=== PATIENT | female | born 1980 | race Caucasian/White ===

== ENCOUNTER 2017-12-19 09:20 | Day surgery (SDC) | payer OTHER ==
--- NOTE | 2017-12-18 11:47 | GHP ---
DATE OF PLANNED PROCEDURE: 12/19/2017. PLANNED PROCEDURE: Hysteroscopy, morcellation of endometrial polyp. PREOPERATIVE DIAGNOSIS: Endometrial polyp. HISTORY OF PRESENT ILLNESS: Patient is a 37-year-old, 2, para 2-0-0-2, who has had infertili ty for the last 3 years. She has been working with [employer] and had a polyp detected by sonohyste martin. Patient states her periods are slightly heavier. They are still regular. Her had a semen analysis which was initially abnormal, but was repeated and was normal. Patient has requested to proceed with a hysteroscopic polypectomy to help with her periods and help improve [facility] [place] Risks and benefits have been extensively reviewed with the patient and the patient has been pro perly consented. She will sign a consent morning of surgery. MEDICAL HISTORY: Infertility, hypothyroidism, history of hemorrhoids. MEDICATIONS: vitamins and Synthroid 50 mcg. SURGICAL HISTORY: section x2, breast cyst aspiration and biopsy, wisdom teeth extraction. ALLERGIES: No known drug allergies. SOCIAL HISTORY: Patient is . She denies tobacco or drug use. She does drink alcohol sociall y. FAMILY MEDICAL HISTORY: Significant for mom with endometrial cancer and maternal grandmother with br east cancer with which she at 51. The patient's mom is BRCA indeterminate. Other family medica l history is the patient's brother secondary to a PE with no obvious causes. They did not do a thrombophilia panel on autopsy. The patient had a negative thrombophilia panel done herself. [employer]PER[employer] HISTORY: Menarche age 13. Periods every 26-28 days, lasting 4-6 days. She is a 2, p kae 2-0-0-2. She has had 2 sections. First section was in 08/2011, for a placenta l abruption at 35 and 5/7 weeks' gestation and severe variable decelerations, and in 2013, she had a repeat low transverse section after non-reassuring status with attempting a vaginal bi rth after section. The patient denies any history of any abnormal Pap smears or sexually tr ansmitted diseases. REVIEW OF SYSTEMS: A 10-point review of systems is negative. PHYSICAL EXAMINATION: VITAL SIGNS: The patient's vital signs are stable. GENERAL APPEARANCE: Aler t and oriented x3. PSYCH: Appropriate affect. MUSCULOSKELETAL: Grossly intact. NEURO: Grossly i ntact. HEART: Rate is regular. LUNGS: Clear to auscultation bilaterally. ABDOMEN: Soft, nondist ended, nontender. EXTREMITIES: Reveal no calf tenderness or edema. PELVIC: A mobile, small, mid p osition uterus with no adnexal masses. Pelvic ultrasound showed a polyp. ASSESSMENT AND PLAN: A 37-year-old, 2, para 2-0-0-2, with 3-year history of infertility, wit h a known uterine polyp which is also causing heavier periods. She will undergo a hysteroscopy with morcellation of endometrial tissue and endometrial polyp. Risks and benefits have been extensively r eviewed with the patient and the patient has been properly consented. /[id number]/MODL
[2017-12-19] MEDS ORDERED: LR 1,000 ML IV ONE (10:07)
--- NOTE | 2017-12-19 10:54 | PDHPUP ---
History & Physical Update H&P update statement: This history and physical update is based on an assessment of the patient which was completed after admission or registration (within 24 hours), but prior to the surgery/procedure. H&P update: H&P reviewed & patient examined, no change in patient's condition since H&P completed
[2017-12-19] MEDS ORDERED: SILVER NITRATE APPLICATOR 1 APPL TP ONE ×2 (11:02→11:48)
[2017-12-19] MEDS ORDERED: fentaNYL 100 MCG/2 ML INJ ONE (11:14)
[2017-12-19] MEDS ORDERED: MIDAZOLAM 2 MG/2 ML VIAL ONE (11:14)
[2017-12-19] MEDS ORDERED: PROPOFOL/EMULSION 500 MG/50 ML BOTTLE IV ONE (11:14)
[2017-12-19] MEDS ORDERED: KETOROLAC 30 MG/1 ML SDV ONE (11:25)
[2017-12-19] MEDS ORDERED: DEXAMETHASONE 4 MG/ML VIAL ONE (11:25)
[2017-12-19] MEDS ORDERED: ONDANSETRON 4 MG/2 ML VIAL ONE (11:25)
[2017-12-19] MEDS ORDERED: METOCLOPRAMIDE 10 MG/2 ML VIAL ONE (11:25)
[2017-12-19] MEDS ORDERED: RANITIDINE 50 MG/2 ML VIAL ONE (11:25)
--- NOTE | 2017-12-19 11:27 | PDANEPAE ---
ANE Past Medical History - Cardiovascular History Hx Hypertension: No Hx Arrhythmias: No Hx Chest Pain: No Hx Coronary Artery / Peripheral Vascular Disease: No Hx CHF / Valvular Disease: No Hx Palpitations: No - Pulmonary History Hx COPD: No Hx Asthma/Reactive Airway Disease: No Hx Recent Upper Respiratory Infection: No Hx Oxygen in Use at Home: No Hx Sleep Apnea: No Sleep Apnea Screening Result - Last Documented: Negative - Neurologic History Hx Cerebrovascular Accident: No Hx Seizures: No Hx Dementia: No - Endocrine History Hx Diabetes: No Endocrine History Comment: SYNTHROID - Renal History Hx Renal Disorders: No Renal History Comment: REQUIRES PEDIATRIC CATHETER - Liver History Hx Hepatic Disorders: No - Neurological & Psychiatric Hx Hx Neurological and Psychiatric Disorders: No - Cancer History Hx Cancer: No - Congenital Disorder History Hx Congenital Disorders: No - GI History Hx Gastrointestinal Disorders: No - Other Health History Other Health History: NEG - Chronic Pain History Chronic Pain: No - Surgical History Prior Surgeries: C SECTION X2. WISDOM TEETH ANE Review of Systems Review of Systems: - Exercise capacity METS (RN): 6 METS ANE Patient History - Allergies Allergies/Adverse Reactions: No Known Allergies Allergy (Verified 12/19/17 10:06) - Home Medications Home Medications: Vit27&Calcium/Iron/FA [] 1 tab PO DAILY 04/20/13 [Last Taken ] Synthroid 12/12/17 [Last Taken 12/19/17 06:45] - NPO status NPO Since - Liquids (Date): 12/19/17 NPO Since - Liquids (Time): 07:30 NPO Since - Solids (Date): 12/18/17 NPO Since - Solids (Time): 21:00 - Smoking Hx Smoking Status: Never smoked - Family Anes Hx Family Hx Anesthesia Complications: NEG ANE Labs/Vital Signs - Vital Signs Blood Pressure: 118/77 Heart Rate: 53 Respiratory Rate: 16 Height: 160.02 cm Weight: 50.802 kg ANE Physical Exam - Airway Neck exam: FROM Mallampati Score: Class 1 Mouth exam: normal dental/mouth exam - Pulmonary Pulmonary: no respiratory distress, no rales or rhonchi, clear to auscultation - Cardiovascular Cardiovascular: regular rate and rhythym, no murmur, rub, or gallop, pulses symmetric bilaterally - ASA Status ASA Status: I ANE Anesthesia Plan Anesthesia Plan: GA w LMA
[2017-12-19] MEDS ORDERED: fentaNYL 100 MCG/2 ML INJ IVP PRN (11:28)
[2017-12-19] MEDS ORDERED: PROMETHAZINE HCL 25 MG/ML INJ IVP PRN (11:28)
[2017-12-19] MEDS ORDERED: DEXAMETHASONE 4 MG/ML VIAL IVP PRN (11:28)
[2017-12-19] MEDS ORDERED: HYDROCODONE/APAP 5/325 TAB PO PRN (11:28)
[2017-12-19] MEDS ORDERED: METOCLOPRAMIDE 10 MG/2 ML VIAL IVP PRN (11:28)
[2017-12-19] MEDS ORDERED: LR 500 ML IV PRN (11:28)
[2017-12-19] MEDS ORDERED: ALBUTEROL 3 ML DEYVIAL IH PRN (11:28)
[2017-12-19] MEDS ORDERED: oxyCODONE IR 5 MG TAB PO PRN (11:28)
[2017-12-19] MEDS ORDERED: ONDANSETRON 4 MG/2 ML VIAL IVP PRN (11:28)
[2017-12-19] MEDS ORDERED: NALOXONE HCL 0.4 MG/ML INJ IVP PRN (11:28)
[2017-12-19] MEDS ORDERED: ACETAMINOPHEN 500 MG TAB PO PRN (11:28)
--- NOTE | 2017-12-19 12:36 | POSTANESTH ---
Post Anesthetic Evaluation Cardiovascular Status: Normal, Stable, Similar to Pre-Op Cond Respiratory Status: Normal, Stable, Similar to Pre-op Cond. Level of Consciousness/Mental Status: Mildly Sleepy, Arousable Pain Control: Adequate, Prn Tx Ordered Nausea/Vomiting Control: Adequate, Prn Tx Ordered Complications Possibly Related to Anesthesia: None Noted
[2017-12-19 12:51] VITALS: BP 105/58
--- NOTE | 2017-12-20 05:22 | GOP ---
DATE OF OPERATION: 12/19/2017 SURGEON: Marge Cruz DO ANESTHESIA: General with LMA. ANESTHESIOLOGIST: Cadence Moulton MD. PREOPERATIVE DIAGNOSIS: Menorrhagia with uterine polyp. POSTOPERATIVE DIAGNOSIS: Menorrhagia with uterine polyp. PROCEDURE PERFORMED: Hysteroscopy with morcellation of endometrial tissue and endometrial polyp. FINDINGS: Mobile midposition uterus with no adnexal masses. Hysteroscopic findings: Bilateral tuba l ostia are visualized. No obvious polyp noted. However, there was a thickened portion of the endom etrium posteriorly. No obvious fibroids. SPECIMENS: Endometrial curettings. INDICATIONS: Patient is a 37-year-old, 2, para 2-0-0-2, who has had a 3 year history of infe rtility. During her infertility workup, she had a uterine polyp noted on sonohysterogram. Recommend ation was for removal. The patient is also complaining of heavy periods. Risks and benefits of the procedure were reviewed with the patient and patient was properly consented. DESCRIPTION OF PROCEDURE: Patient was taken to the operating room with intravenous fluids in place. She was then placed on the operating room table in dorsal supine position where general anesthesia w as obtained. She was then repositioned into the dorsal lithotomy position with the Yellofin stirrups and prepped and draped in the normal sterile fashion. Exam under anesthesia revealed a mobile, midp osition uterus with no adnexal masses. A speculum was then placed in the patient's vagina. An Allis clamp was used to grasp the anterior lip of the cervix. The cervix was then carefully dilated. Aft er 7-Luxembourger Allis off the cervix. A single-tooth tenaculum was then used. The cervix was then carefully dilated to allow for the introduction of an operative hysteroscope. The hysteroscope was then introduced with fluid medium running. No obvious polyps were noted, but the endometrium wa s noted to be thick posteriorly. Bilateral tubal ostia were visualized. The morcellator was then in troduced and a circumferential morcellation was performed including morcellation of that posterior ar ea. Instruments were then removed from the patient's vagina. Bleeding was noted from the tenaculum site. Hemostasis was not achieved with silver nitrate. A 2-0 Vicryl stitch was used in an interrupt ed fashion to achieve hemostasis bilaterally. Instruments were then removed from the patient's vagin a. No additional bleeding was noted. The patient was returned to the dorsal supine position where s he was easily awoken from anesthesia. Sponge and needle count were correct. The patient was transpo rted to recovery room in stable condition. /[id number]/MODL
== END 2017-12-19 13:01 | disposition home or self-care (01) ==
LOC: FSGY 09:20 → EDSTATUS 11:00 → FSGY 13:01
PROVIDERS: ATTEND Obstetrics & Gynecology
PROC: 0UB98ZX Excision of Uterus, Via Natural or Artificial Opening Endoscopic, Diagnostic (ICD-10-PCS; principal; 2017-12-19 11:00)
DX: N84.0 Polyp of corpus uteri (principal); N92.0 Excessive and frequent menstruation with regular cycle
CPT/HCPCS: 58558; C1782; J1100; J1885; J2250; J2405; J2704; J2765; J2780; J3010